=== PATIENT | female | born 1995 | race Caucasian/White ===

== ENCOUNTER 2020-10-15 16:08 | Emergency (ER) | payer BC, SELFPAY ==
--- NOTE | ~2020-10-15 | XR_ITS ---
EXAMINATION: XR abdomen/kub 1V DATE: 10/15/2020 19:54 INDICATION: Right pelvic pain. Urolithiasis. TECHNIQUE: A supine view of the abdomen on 2 radiographs was obtained. COMPARISON: CT abdomen and pelvis 10/15/2020 FINDINGS: There are no dilated loops of bowel. There is contrast in the ureters and bladder. There is mild right hydronephrosis. IMPRESSION: 1. Mild right hydronephrosis. Reviewed, dictated and finalized at location A.
--- NOTE | ~2020-10-15 | CT_ITS ---
EXAMINATION: CT abdomen pelvis w con DATE: 10/15/2020 19:35 INDICATION: Right lower quadrant abdominal pain. Vomiting. TECHNIQUE: Computed tomography (CT) of the abdomen and pelvis was performed with 100 mL Omnipaque 350 intravenous contrast. Automated exposure control and iterative reconstruction technique were employe d. The dose-length product was 1653.79 mGy-cm. COMPARISON: None. FINDINGS: The visualized portions of the lung bases demonstrate minimal atelectasis in the left. No p leural effusion. The heart size is normal. No pericardial effusion. The liver, gallbladder, spleen, p ancreas, adrenal glands, and left kidney are normal. There are 5 mm and 1 mm stones in right kidney. There is mild right hydronephrosis. There is a 2 mm stone in proximal right ureter. There are no dila jhoana loops of bowel. The appendix is normal. There are no pathologically enlarged lymph nodes. There i s no free intraperitoneal fluid. There is mild thoracic spondylosis and moderate lumbar spondylosis. 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 There is levoscoliosis of lumbar spine . IMPRESSION: 1. 2 mm stone in proximal right ureter with mild right hydronephrosis. 2. Nonobstructing right kidney stones. Reviewed, dictated and finalized at location A.
[2020-10-15 16:11] VITALS: BP 153/99; PULSE 104; RESP 16; TEMP 36.2; O2SAT 100
[2020-10-15 16:27] LABS: Basophils Absolute Auto 0.1 K/mm3 (0.0-0.1); Basophils Percent Auto 0.6 % (0.2-1.2); Eosinophils Percent Auto 0.3 % (0-4.4); Hematocrit 41.6 % (37.0-47.0); Hemoglobin 13.2 g/dL (12.0-15.0); Immature Granulocyte Absolute 0.03 K/mm3 (0.00-0.031); Immature Granulocyte Percent A 0.2 % (0-0.5); Lymphocytes Absolute Auto 1.81 K/mm3 (0.9-3.2); Lymphocytes Percent Auto 14.9 % (18.3-44.2); Mean Corpuscular HGB Conc 31.7 g/dl (32-36); Mean Corpuscular Hemoglobin 26.2 pg (26-34); Mean Corpuscular Volume 82.7 fl (80-100); Mean Platelet Volume 10.5 fl (7.4-10.4); Monocytes Absolute Auto 0.6 K/mm3 (0.1-0.6); Monocytes Percent Auto 4.9 % (2.6-8.5); Neutrophils Absolute Auto 9.6 K/mm3 (1.3-6.7); Neutrophils Percent Auto 79.1 % (45.5-73.1); Platelet Count Result 293 k/mm3 (150-375); Red Blood Count 5.03 M/mm3 (4.2-5.4); Red Cell Distribution Width 13.7 % (11.5-14.5); White Blood Count 12.1 K/mm3 (4.5-10.0)
[2020-10-15 16:37] LABS: Alanine Aminotransferase 26 U/L (4-35); Albumin Level 4.7 g/dL (3.5-5.1); Alkaline Phosphatase 99 U/L (38-126); Anion Gap 11 mmol/L (8-16); Aspartate Amino Transferase 29 U/L (14-36); Bilirubin,Total 0.5 mg/dL (0.2-1.3); Blood Urea Nitrogen 14 mg/dL (7-17); Carbon Dioxide 20 mmol/L (22-30); Chloride 109 mmol/L (98-107); Estimated CRCL calculation 107 ml/min; Estimated Glomerular Filt Rate 60; Glucose 129 mg/dL (65-105); Lipase 37 U/L (23-300); Potassium 4.1 mmol/L (3.4-5.0); Sodium 140 mmol/L (137-145)
--- NOTE | 2020-10-15 18:44 | ED.ABDPAIN ---
HPI - Abdominal Pain General Chief Complaint: Abdominal Pain Stated Complaint: Right Lower ABD Pain Time Seen by Provider: 10/15/20 17:47 Source: patient Mode of arrival: ambulatory Limitations: no limitations History of Present Illness HPI narrative: This is a 25-year-old female that presents the emergency department for right lower quadrant pain since this afternoon. Associated with nausea and vomiting. Reports the pain is sharp and constant. Denies fever, dysuria, or hematuria. Related Data Allergies Allergy/AdvReac Type Severity Reaction Status Date / Time No Known Allergies Allergy Verified 10/15/20 18:56 Review of Systems Review of Systems: Narrative: CONSTITUTIONAL: Denies fever GASTROINTESTINAL: Reports abdominal pain, nausea, vomiting GENITOURINARY: Denies dysuria or hematuria. All systems reviewed & are unremarkable except as noted in HPI and below PMFSH Past Medical History Medical History (Updated 10/15/20 @ 21:16 by Radha Tellez PA-C) No active medical problems Social History Social History (Updated 10/15/20 @ 18:45 by Radha Tellez PA-C) Substance use: never Exam Narrative: Exam Narrative: GENERAL: Well-appearing, obese, and in no acute distress. HEAD: Normocephalic, atraumatic. EYES: EOMI. CHEST: Clear to auscultation. No respiratory distress. No wheezes rales or rhonchi HEART: Regular rate and rhythm. No murmur heard. Normal peripheral pulses. ABDOMEN: Soft, nondistended, normal active bowel sounds. Tender to palpation in the right lower quadrant. No CVA tenderness EXTREMITIES: Normal range of motion. No edema. SKIN: Warm, dry, no rash. NEURO: No focal deficits. Alert and oriented x3. PSYCH: Normal mood and affect Course Vital Signs Vital signs: Vital Signs Temperature 97.2 F L 10/15/20 16:11 Pulse Rate 104 H 10/15/20 16:11 Respiratory Rate 16 10/15/20 16:11 Blood Pressure 153/99 H 10/15/20 16:11 Pulse Oximetry 100 10/15/20 16:11 Temperature 97.2 F L 10/15/20 16:11 Pulse Rate 67 10/15/20 21:02 Respiratory Rate 18 10/15/20 19:01 Blood Pressure 138/61 10/15/20 21:02 Pulse Oximetry 100 10/15/20 21:02 MDM - Abdominal Pain MDM Narrative Medical decision making narrative: Patient presents the emergency department for right lower quadrant abdominal pain associated with nausea and vomiting. She is afebrile and nontoxic-appearing. Vitals are stable. CBC with mild leukocytosis to 12.1. Metabolic panel with mild elevation in creatinine to 1.1. UA with greater than 75 red cells, 4-6 white blood cells. Also moderate squamous epithelial cells. Patient denies any urinary symptoms. This will be sent for culture. Bedside test is negative. CT scan abdomen and pelvis shows a 2 mm stone in the right proximal ureter with mild right hydronephrosis. Patient updated on case findings. Hydrated while in the ED. Will be started on Flomax and given urine strainer. Is to follow-up with urology. She does not want any pain medication at this time. She was given warnings to return to the ER Lab Data Attestation: I reviewed the patient's lab results. Result diagrams: 10/15/20 16:17 10/15/20 16:17 Labs: Lab Results 10/15/20 10/15/20 10/15/20 Range/Units 16:17 16:17 19:03 WBC 12.1 H (4.5-10.0) K/mm3 RBC 5.03 (4.2-5.4) M/mm3 Hgb 13.2 (12.0-15.0) g/dL Hct 41.6 (37.0-47.0) % MCV 82.7 (80-100) fl MCH 26.2 (26-34) pg MCHC 31.7 L (32-36) g/dl RDW 13.7 (11.5-14.5) % Plt Count 293 (150-375) k/mm3 MPV 10.5 H (7.4-10.4) fl Immature Gran % (Auto) 0.2 (0-0.5) % Neut % (Auto) 79.1 H (45.5-73.1) % Lymph % (Auto) 14.9 L (18.3-44.2) % Bradford % (Auto) 4.9 (2.6-8.5) % Eos % (Auto) 0.3 (0-4.4) % Baso % (Auto) 0.6 (0.2-1.2) % Lymph # (Auto) 1.81 (0.9-3.2) K/mm3 Bradford # (Auto) 0.6 (0.1-0.6) K/mm3 Eos # (Auto) 0.0 (0-0.3) K/mm3 Baso # (Auto)
[2020-10-15] MEDS: SODIUM CHLORIDE 0.9% IV 1,000 ML 999 ML IV CONT (18:53)
[2020-10-15] MEDS: ONDANSETRON INJ 4 MG/2 ML VIAL IV PUSH (18:54)
[2020-10-15 19:01] VITALS: BP 150/88; PULSE 89; RESP 18; O2SAT 100
--- NOTE | 2020-10-15 19:09 | PC.NURSE ---
Assumed care of pt at this time. Report from Shanita BEAN.
[2020-10-15 19:14] LABS: Add Urine Microscopic? YES; Amorphous Sediment Urine Few; Appearance Urine Cloudy (Clear); Bacteria Urine Trace /hpf; Bilirubin Urine Negative (Negative); Blood Urine 2+ (Negative); Color Urine Yellow (Yellow); Glucose Urine UA Negative (Negative); Ketones Urine Negative (Negative); Leukocyte Esterase Ur Trace LEU/UL (Negative); Mucus Urine Few /lpf; Nitrate Urine Negative (Negative); Protein Urine Negative (Negative); RBC Urine >75 /hpf (0-2); Specific Grav Ur 1.018 (1.001-1.035); Squamous Epithelial Cell Urine Moderate /hpf (Few); Urobilinogen Urine Negative mg/dL (<2.0)
[2020-10-15 21:02] VITALS: BP 138/61; PULSE 67; O2SAT 100
[2020-10-15 21:30] VITALS: BP 138/61
== END 2020-10-15 21:30 | disposition home or self-care (01) ==
PROVIDERS: Emergency Provider Emergency Medicine
DX: N20.1 Calculus of ureter (principal)
CPT/HCPCS: 36415; 74018; 74177; 80053; 81001; 81025; 83690; 85025; 87086; 87088; 87147; 96365; 96375; 99284; J0131; J2405; J7030; Q9967